=== PATIENT | female | born 1955 ===

== ENCOUNTER 2017-10-16 16:34 | Emergency (ER) | payer MEDICAID ==
[2017-10-16] MEDS ORDERED: Sodium Chloride 0.9% 1,000 ML IV ONE (16:53)
--- NOTE | 2017-10-16 17:15 | C.PDOC ---
History Of Present Illness 62 year old female presents to the ED with 1-day history of lower abdominal pain. Also complaining of lower back pain. Otherwise denies any urinary symptoms , nausea, vomiting, diarrhea, or constipation. Time Seen by Provider: 10/16/17 16:52 Chief Complaint (Nursing): Abdominal Pain History Per: Patient History/Exam Limitations: no limitations Onset/Duration Of Symptoms: Days Current Symptoms Are (Timing): Still Present Past Medical History Reviewed: Historical Data, Nursing Documentation, Vital Signs Vital Signs: Last Vital Signs Temp 97.6 F 10/16/17 16:37 Pulse 75 10/16/17 16:37 Resp 18 10/16/17 16:37 BP 135/78 10/16/17 16:37 Pulse Ox 98 10/16/17 18:26 - Medical History PMH: HTN Other Surgeries: Hysterectomy Family History: States: Unknown Family Hx - Social History Hx Tobacco Use: No Hx Alcohol Use: No Hx Substance Use: No - Immunization History Hx Influenza Vaccination: No Hx Pneumococcal Vaccination: No Review Of Systems Except As Marked, All Systems Reviewed And Found Negative. Constitutional: Negative for: Fever, Chills Gastrointestinal: Positive for: Abdominal Pain. Negative for: Nausea, Vomiting , Diarrhea, Constipation Genitourinary: Negative for: Dysuria, Frequency, Hematuria Musculoskeletal: Positive for: Back Pain Physical Exam - Physical Exam Appears: Non-toxic, No Acute Distress Skin: Normal Color, Warm, Dry Head: Atraumatic, Normacephalic Eye(s): bilateral: Normal Inspection, PERRL, EOMI Oral Mucosa: Moist Neck: Normal ROM, Supple Chest: Symmetrical Cardiovascular: Rhythm Regular, No Murmur Respiratory: Normal Breath Sounds, No Accessory Muscle Use Gastrointestinal/Abdominal: Soft, Tenderness (to the suprapubic, RLQ, and right flank regions), No Guarding, No Rebound, Other (Scar near umbilicus indicative of prior abdominoplasty) Back: Normal Inspection, No Vertebral Tenderness Extremity: Bilateral: Atraumatic, Normal Color And Temperature, Normal ROM Neurological/Psych: Oriented x3, Normal Speech, Other (No focal deficits) Gait: Steady ED Course And Treatment - Laboratory Results Result Diagrams: 10/16/17 17:17 10/16/17 17:17 Lab Interpretation: Normal O2 Sat by Pulse Oximetry: 98 (RA) Pulse Ox Interpretation: Normal - CT Scan/US No standard instances Other Rad Studies (CT/US): Read By Radiologist, Radiology Report Reviewed CT/US Interpretation: FINDINGS: LOWER THORAX: Minor scarring and dependent type atelectasis both lung bases. There is a small hiatal hernia. Heart size is within range of normal. No significant pericardial effusion. LIVER: Liver is borderline/mildly enlarged measuring nearly 19 cm in CC dimension. No obvious hepatic mass collection or calcification. No obvious hepatic mass or collection seen on this noncontrast exam. GALLBLADDER AND BILE DUCTS: Gallbladder physiologically distended. No evidence of obvious intraluminal gallbladder calculi seen. Common bile duct appears. PANCREAS: Dilated pancreas appears unremarkable without masses collections or calcifications. No significant pancreatic ductal dilatation. . SPLEEN: Spleen exhibits normal size and attenuation pattern. There are no large splenic lesions. ADRENALS: Unremarkable. KIDNEYS AND URETERS: Unremarkable. No stone or hydronephrosis. BLADDER: Urinary bladder is is physiologically distended. No evidence of intraluminal urinary bladder calculi. REPRODUCTIVE: Apparent hysterectomy. Clinical correlation with history recommended. APPENDIX: What is felt to represent a normal partially air-filled appendix best seen on coronal image number [id number]. No obvious periappendiceal inflammatory changes. BOWEL: Evaluation of the bowel is somewhat limited the due to the lack of oral contrast material. Stomach is incompletely distended which in part accounts for thick-walled appearance. Gastritis or other intrinsic/invasive wall lesion not excluded. Visualized loops of small bowel exhibit normal contour and caliber. No evidence of acute mechanical small bowel obstruction. Moderately large amount of stool seen throughout the large bowel suggesting mild constipation. . No definitive mural wall thickening. . PERITONEUM: Unremarkable. No fluid collection. No free air. . Small fat containing umbilical hernia. LYMPH NODES: As above. VASCULATURE: Unremarkable. No evidence of abdominal aortic or iliac artery aneurysms. BONES: Minor multilevel degenerative spondylosis of the lower thoracic and lumbar spine. OTHER FINDINGS: None. IMPRESSION: Borderline hepatomegaly. Dilatation of the common bile duct. Findings consistent with mild constipation. Progress Note: Treated with IVF NSS and toradol 15 mg IV. On re-evaluation abdomen soft. Patient provided with copy of CT report and US report as outpatient from last month. Discharged in stable condition Reassessment Condition: Improved Medical Decision Making Medical Decision Making: Initial Plan: --Lipase --CMP --CBC --Urinalysis --IV fluids --Toradol 15 mg IV --CT A/P without contrast Disposition Counseled Patient/Family Regarding: Studies Performed, Diagnosis, Need For Followup, Rx Given - Disposition Referrals: Krishna Paredes MD [Staff Provider] - Disposition: HOME/ ROUTINE Disposition Time: 18:40 Condition: STABLE Instructions: Acute Abdomen (Belly Pain), Constipation in Adults Forms: [facility] (Lao) - POA Present On Arrival: None - Clinical Impression Clinical Impression: Abdominal pain, Constipation - PA / BUILDINGS [employer]OUNDS COORDINATOR / Resident Statement MD/DO has reviewed & agrees with the documentation as recorded. - Scribe Statement The provider has reviewed the documentation as recorded by the Scribe (Ly Smiley) All medical record entries made by the Scribe were at my direction and personally dictated by me. I have reviewed the chart and agree that the record accurately reflects my personal performance of the history, physical exam, medical decision making, and the department course for this patient. I have also personally directed, reviewed, and agree with the discharge instructions and disposition.
[2017-10-16 17:29] LABS: BASO % 0.4 % (0.0-2.0); EOS # 0.1 K/uL (0.0-0.7); EOS % 1.6 % (0.0-4.0); HEMOGLOBIN 13.8 g/dL (11.0-16.0); LYMPH # 2.9 K/uL (1.0-4.3); MEAN CELL VOLUME 96.1 fL (81.0-99.0); MEAN CORPUSCULAR HEMOGLOBIN 32.2 pg (27.0-31.0); MEAN CORPUSCULAR HGB CONC 33.5 g/dL (33.0-37.0); MEAN PLATELET VOLUME 7.9 fL (7.2-11.7); MONO # 0.9 K/uL (0.0-0.8); NEUT # 2.5 K/uL (1.8-7.0); NRBC % 0.1 % (0.0-2.0); RBC 4.3 Mil/uL (3.80-5.20); RED CELL DISTRIBUTION WIDTH 15.3 % (11.5-14.5); WHITE BLOOD COUNT 6.5 K/uL (4.8-10.8)
[2017-10-16 17:35] LABS: SQUAMOUS EPITHIAL 1 /hpf (0-5); URINE BACTERIA RARE (<OCC); URINE BILIRUBIN NEGATIVE (NEGATIVE); URINE BLOOD NEGATIVE (NEGATIVE); URINE CLARITY Clear (Clear); URINE COLOR Straw (YELLOW); URINE GLUCOSE (UA) NORMAL (Normal); URINE LEUKOCYTE ESTERASE NEG Leu/uL (Negative); URINE PROTEIN NEGATIVE (NEGATIVE); URINE UROBILINOGEN NORMAL mg/dL (0.2-1.0)
[2017-10-16 17:40] LABS: CALCIUM 8.9 mg/dl (8.6-10.4); GFR AFRICAN-AMERICAN > 60; GFR NON-AFRICAN AMERICAN > 60; LIPASE 215 U/L (23-300)
[2017-10-16 17:41] LABS: ALBUMIN 4.4 g/dL (3.5-5.0); ALT/SGPT 98 U/L (9-52); AST/SGOT 98 U/L (14-36); BLOOD UREA NITROGEN 15 mg/dL (7-17)
--- NOTE | 2017-10-16 18:20 | CT ---
PROCEDURE: CT abdomen pelvis dated 10/16/2017 HISTORY: Pain COMPARISON: Comparison made with prior CT scan abdomen pelvis 08/08/2012. TECHNIQUE: Contiguous axial images of the abdomen and pelvis performed without oral or intravenous contrast material. Additional 2D sagittal and coronal reformats generated. This CT exam was performed using one or more of the following dose reduction techniques: Automated exposure control, adjustment of the mA and/or kV according to patient size, and/or use of iterative reconstruction technique. Radiation dose: Total exam DLP = 252.34 mGy-cm. FINDINGS: LOWER THORAX: Minor scarring and dependent type atelectasis both lung bases. There is a small hiatal hernia. Heart size is within range of normal. No significant pericardial effusion. LIVER: Liver is borderline/mildly enlarged measuring nearly 19 cm in CC dimension. No obvious hepatic mass collection or calcification. No obvious hepatic mass or collection seen on this noncontrast exam GALLBLADDER AND BILE DUCTS: Gallbladder physiologically distended. No evidence of obvious intraluminal gallbladder calculi seen. Common bile duct appears PANCREAS: Dilated pancreas appears unremarkable without masses collections or calcifications. No significant pancreatic ductal dilatation. . SPLEEN: Spleen exhibits normal size and attenuation pattern. There are no large splenic lesions. ADRENALS: Unremarkable. KIDNEYS AND URETERS: Unremarkable. No stone or hydronephrosis. BLADDER: Urinary bladder is is physiologically distended. No evidence of intraluminal urinary bladder calculi. REPRODUCTIVE: Apparent hysterectomy. Clinical correlation with history recommended. APPENDIX: What is felt to represent a normal partially air-filled appendix best seen on coronal image number [id number]. No obvious periappendiceal inflammatory changes. BOWEL: Evaluation of the bowel is somewhat limited the due to the lack of oral contrast material. Stomach is incompletely distended which in part accounts for thick-walled appearance. Gastritis or other intrinsic/invasive wall lesion not excluded. Visualized loops of small bowel exhibit normal contour and caliber. No evidence of acute mechanical small bowel obstruction. Moderately large amount of stool seen throughout the large bowel suggesting mild constipation. . No definitive mural wall thickening. . PERITONEUM: Unremarkable. No fluid collection. No free air. . Small fat containing umbilical hernia. LYMPH NODES: As above. VASCULATURE: Unremarkable. No evidence of abdominal aortic or iliac artery aneurysms. BONES: Minor multilevel degenerative spondylosis of the lower thoracic and lumbar spine. OTHER FINDINGS: None. IMPRESSION: Borderline hepatomegaly. Dilatation of the common bile duct. Findings consistent with mild constipation.
[2017-10-16 18:46] VITALS: BP 142/86; PULSE 69; RESP 20; TEMP 98.4; O2SAT 97
== END 2017-10-16 18:45 | disposition home or self-care (01) ==
LOC: C.ER 16:34
DX: R10.30 Lower abdominal pain, unspecified (principal); K59.00 Constipation, unspecified; I10 Essential (primary) hypertension
CPT/HCPCS: 74176; 80053; 81001; 83690; 85025; 96361; 96374; 99285; J1885; J7030

== ENCOUNTER 2017-10-30 08:50 | Day surgery (SDC) | payer MEDICAID ==
[2017-10-30] MEDS ORDERED: Lactated Ringer's 1,000 ML IV ONE (11:34)
[2017-10-30] MEDS ORDERED: Propofol 10 mg/ml Inj (20 ML) ONE (11:38)
[2017-10-30] MEDS ORDERED: Lidocaine Hydrochloride 5 ML INJ ONE (11:57)
[2017-10-30 12:10] VITALS: TEMP 97.6
[2017-10-30 13:00] VITALS: PULSE 68; RESP 17; O2SAT 99
[2017-10-30 13:03] VITALS: BP 113/79
== END 2017-10-30 13:00 | disposition home or self-care (01) ==
LOC: C.ENDO 08:50 → MERGE 08:50 → C.ENDO 13:00
PROVIDERS: ATTEND Internal Medicine Gastroenterology
DX: K29.50 Unspecified chronic gastritis without bleeding (principal); K21.9 Gastro-esophageal reflux disease without esophagitis; K52.9 Noninfective gastroenteritis and colitis, unspecified; I10 Essential (primary) hypertension; Z90.710 Acquired absence of both cervix and uterus; Z90.89 Acquired absence of other organs; Z79.899 Other long term (current) drug therapy
CPT/HCPCS: 43239; 88305; J2704; J7120